=== PATIENT | female | born 1960 | race Caucasian/White ===

== ENCOUNTER 2018-10-07 19:17 | Inpatient (IN) ==
[2018-10-07] MEDS ORDERED: ASPIRIN PR ONE (19:25)
[2018-10-07] MEDS ORDERED: ASPIRIN PO ONE ×2 (19:25→20:44)
--- NOTE | 2018-10-07 19:56 | PROVIDER DOCUMENTATION ---
HPI-Cardiac General - General Chief Complaint: Palpitations Stated Complaint: HEART MONITORING [facility] TOLD HER TO COME IN Time Seen by Provider: 10/07/18 19:34 Source: patient Allergies/Adverse Reactions: Patient Allergies Allergy/AdvReac Type Severity Reaction Status Date / Time No Known Allergies Allergy Verified 07/22/17 09:20 Home Medications: Home Medication List Medication Instructions Recorded Confirmed Last Taken Type Citalopram [Celexa] 20 mg PO DAILY 08/12/16 09/07/18 09/07/18 History Clonazepam 1 mg PO BID 08/12/16 09/07/18 09/07/18 14:00 History Meloxicam 7.5 mg PO BID 08/12/16 09/07/18 09/07/18 12:00 History Losartan Potassium [Cozaar] 100 mg PO DAILY #30 tab 08/19/17 09/07/18 09/07/18 12:00 Rx Losartan [Cozaar] 100 mg PO DAILY tablet 09/09/18 Unknown Rx Metoprolol [Lopressor] 25 mg PO BID 30 Days #60 tab 09/09/18 Unknown Rx - History of Present Illness-Cardiac Nature of Presenting Problem: Pt is 58 yo female, with pmh of SVT approx 1 month ago, HR 250, while in ER was given adenosine, then cardioverted. 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 States the episode lasted approx 30 min and on arrival to ED, EKG with sinus tach at 102. Denies cp. Denies sob. Onset/Duration: abrupt, just prior to arrival Timing: gone now Context/Activities at Onset: reports: light activity History of arrythmia: reports: SVT Prior Chest Pain/Cardiac Workup: reports: other (similar symptoms) Similar Symptoms Previously?: Yes Recently Seen Here or By Another Healthcare Provider: Yes Review of Systems - Adult - REVIEW OF SYSTEMS - ADULT Constitutional: denies: fever Cardiovascular: reports: palpitations. denies: chest pain Respiratory: denies: shortness of breath Gastrointestinal: denies: vomiting Neurological: reports: dizziness/vertigo Psychiatric: reports: panic attacks All Other Systems: Reviewed and Negative Past History - Adult - PAST MEDICAL HISTORY-ADULT Review of Records: reports: Old Records Reviewed, Nursing Assessment Review, Medications Reviewed, Social history reviewed & non-contributory. Psychiatric: reports: anxiety - IMMUNIZATION STATUS Childhood Immunizations: See Nurse Assessment Flu Vaccine: See Nurse Assessment Physical Exam-General - PHYSICAL EXAM-ADULT Initial Vital Signs Reviewed: Yes (tachycardic; mildly elevated blood pressure) - CONSTITUTIONAL General Appearance: alert, mild distress, anxious - EYES Eyes: PERRL/EOMI, pink conjunctivae - HEAD, EARS, NOSE, MOUTH & THROAT HENMT: normocephalic/atraumatic, moist mucous membranes - NECK Neck: supple - RESPIRATORY Respiratory: lungs clear, normal breath sounds, no pleuratic chest pain, no respiratory distress, no accessory muscle use - CARDIOVASCULAR Cardiovascular: no edema, no gallop, no JVD, no murmur, tachycardia, 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) - SKIN Integumentary: normal color, normal turgor, warm/dry - NEUROLOGIC Neurologic: grossly normal - PSYCHIATRIC Psych/Mental Status: normal thought content, normal thought process, oriented x 3, anxious Progress - PLAN OF CARE/RESULTS Progress/Plan/Lab Results: Vital Signs - 8 hr 10/07/18 19:28 Temperature 98.2 F Pulse Rate 107 H Respiratory Rate 22 Blood Pressure 142/91 O2 Sat by Pulse Oximetry 95 Laboratory Results - last 24 hr 10/07/18 10/07/18 10/07/18 19:30 19:30 19:30 WBC 17.15 H RBC 4.46 Hgb 12.6 Hct 39.0 MCV 87.4 MCH 28.3 MCHC 32.3 L RDW Std Deviation 14.2 Plt Count 309 MPV 10.6 H Immature Gran % (Auto) 0.3 Neut % (Auto) 77.2 H Lymph % (Auto) 13.5 L [place] % (Auto) 6.9 Eos % (Auto) 2.0 Baso % (Auto) 0.1 Immature Gran # (Auto) 0.05 H Neut # (Auto) 13.24 H Lymph # (Auto) 2.31 [place] # (Auto) 1.19 H Eos # (Auto) 0.34 Baso # (Auto) 0.02 PT 13.0 INR 0.91 PTT (Actin FS) 28.5 Troponin T < 0.010 Orders Category Date Time Status Cardiac Monitoring DIRECTED Care 10/07/18 19:26 Active Oxygen Therapy- ED Nursing DIRECTED Care 10/07/18 19:26 Active Saline Loc NOW Care 10/07/18 19:26 Active CHEST-2 VIEWS [RAD] Stat Exams 10/07/18 19:26 Completed CBC WITH ELECTRONIC DIFF [HEME] Stat Lab 10/07/18 19:30 Completed CK PROFILE [SP CHEM] Stat Lab 10/07/18 19:30 Received COMPREHENSIVE METABOLIC PANEL [CHEM] Stat Lab 10/07/18 19:30 Received PRO B-NATRIURETIC PEPTIDE Stat Lab 10/07/18 19:30 Received PROTIME WITH INR [COAG] Stat Lab 10/07/18 19:30 Completed PTT [COAG] Stat Lab 10/07/18 19:30 Completed TROPONIN T Stat Lab 10/07/18 19:30 Completed Aspirin Med 10/07/18 19:25 Discontinued 300 mg MO NOW ONE Aspirin Med 10/07/18 19:25 Discontinued 325 mg PO NOW ONE Aspirin Med 10/07/18 20:44 Discontinued 325 mg PO NOW ONE CP/SOB/Palp >45 yrs of Age Stat Oth 10/07/18 19:25 Ordered EKG [EKG] Stat Ther 10/07/18 19:26 Ordered Result Diagrams: 10/07/18 19:30 - REASSESSMENT Reassessment #1 Time Reassessed: 20:49 (d/w Dr. Chacon, admit to hospitalist. ) Reassessment #2 Time Reassessed: 20:56 (d/w Dr. Kaplan for admission. ) Departure - Departure Date of Disposition Decision: 10/07/18 Time of Disposition Decision: 20:50 DIAGNOSIS: SVT (supraventricular tachycardia) Disposition: ADMITTED INPATIENT 09 Certified Medical Emergency: Emergent Condition: Stable Referrals and Follow-Ups: Omayra Bennett MD [Primary Care Provider] - - Critical Care Note This patient required my direct & personal management of CC.: No Attestation - Physician/ LISSA Attestation Patient care was provided by Advanced Practice Provider:: Yes Advanced Practice Provider documentation review:: The Mid-level provider documentation, treatment plan and medical decision making was reviewed by the physician who agrees with all treatment and medical decision making by the P. The physician spent face to face time with patient:: No Advanced Practice Provider documentation review:: Supervising physician onsite and consulted in the evaluation and care of this patient. The physician did not have a face to face encounter with the patient.
[2018-10-07 20:23] LABS: BASO# 0.02 X1000 (0.0-0.2); BASO% 0.1 % (0.0-0.8); EOS# 0.34 X1000 (0.0-0.7); HEMOGLOBIN 12.6 g/dL (12.0-16.0); IMM GRAN# 0.05 X1000 (0.0-0.04); IMM GRAN% 0.3 % (0.0-0.5); LYMPH# 2.31 X1000 (1.2-3.4); LYMPH% 13.5 % (20.5-51.1); MCH 28.3 PG (27-31); MCHC 32.3 g/dL (33-37); MCV 87.4 FL (81-99); MONO# 1.19 X1000 (0.11-0.59); MONO% 6.9 % (1.7-9.3); MPV 10.6 FL (7.4-10.4); NEUT# 13.24 X1000 (1.4-6.5); NEUT% 77.2 % (42.2-75.2); PLT 309 X1000 (130-400); RBC 4.46 XMIL (4.2-5.4); RDW 14.2 % (11.5-14.5); WBC 17.15 X1000 (4.8-10.8)
[2018-10-07 20:31] LABS: INR 0.91
[2018-10-07 20:32] LABS: PTT 28.5 Seconds (22.3-41.8)
--- NOTE | 2018-10-07 20:54 | Diag Imaging Result Doc PS360 ---
CHEST-2 VIEWS - 10/07/2018 INDICATION: palpatations. COMPARISON: 09/07/2018 FINDINGS: The lungs are normally expanded and clear. Heart size and mediastinal contours are normal. No pneumothorax or pleural effusion. IMPRESSION: Negative exam. Electronically signed by Shelton Whitlock 10/07/2018 8:52 PM
[2018-10-07 20:57] LABS: AGAP 17; ALB/GLOB RATIO 1.4; ALBUMIN 4.3 g/dL (3.5-5.0); ALKALINE PHOSPHATASE 103 U/L (32-104); BUN 15 mg/dL (8-22); CALCIUM 8.8 mg/dL (8.8-10.2); CHLORIDE 105 mmol/L (98-107); CK PROFILE 60 U/L (24-173); COSMO 285; CREATININE 0.9 mg/dL (0.5-0.9); ESTIMATED GFR > 60; GLUCOSE 153 mg/dL (70-104); GOT 11 U/L (10-30); GPT 12 U/L (10-36); POTASSIUM 3.9 mmol/L (3.5-5.1); SODIUM 141 mmol/L (136-145); TCO2 19 mmol/L (25-35); TOTAL BILIRUBIN 0.55 mg/dL (0.20-1.00); TOTAL PROTEIN 7.3 g/dL (6.3-8.3)
[2018-10-07] MEDS: NS 1,000 ML IV SCH (23:25)
--- NOTE | 2018-10-08 02:19 | HISTORY AND PHYSICAL ---
PRIMARY CARE PHYSICIAN: Dr. Omayra Bennett. CHIEF COMPLAINT: Heart racing, dizzy, not feeling well. HISTORY OF PRESENTING ILLNESS: A 58-year-old female with a history of SVT, hypertension, anxiety disorder, and arthritis who, apparently, had an episode about a month ago when she was in SVT and had to be cardioverted. She, apparently, had seen photocopy operator at that time, was put on a loop recorder and sent home. Over the past day or so, she states that she has developed the symptoms again with the heart racing, dizziness, and subsequently she got a call from the monitoring service telling her to come to the emergency department. In the ED, she was evaluated. She was now in a sinus tach. Due to patient being symptomatic, it was thought that she would need admission for further management. At the time of my examination, she denied any headache, fever, chills, hemoptysis, melena, weight changes, but complained of palpitations, some mild chest discomfort, and shortness of breath. PAST MEDICAL HISTORY: Includes hypertension, anxiety, SVT, arthritis. PAST SURGICAL HISTORY: Bilateral knee replacement. ALLERGIES: No known drug allergies. CURRENT MEDICATIONS: Include Mobic 7.5 mg p.o. b.i.d., Klonopin 1 mg p.o. daily, losartan 25 mg, 1 daily, Celexa 20 mg p.o. daily, metoprolol 25 mg p.o. b.i.d., levothyroxine 25 mcg p.o. daily, amitriptyline 10 mg p.o. at bedtime, Lasix 20 mg p.o. daily. SOCIAL HISTORY: She is a former smoker. History of alcohol use in the past. Denies any illicit drug use. FAMILY HISTORY: No history of coronary disease. REVIEW OF SYSTEMS: Fourteen-point review of system is as in HPI. Other systems negative. PHYSICAL EXAMINATION: GENERAL: Cooperative, friendly female, she is resting comfortably now. VITAL SIGNS: Temperature 98.2 degrees, pulse 107, respirations 22, blood pressure 142/91. HEENT: Atraumatic, normocephalic. Extraocular movements intact. PERRLA. NECK: No masses. CHEST: Clear to auscultation. CARDIOVASCULAR: Tachycardic. ABDOMEN: Soft, positive bowel sounds. EXTREMITIES: No edema. NEUROLOGIC: She is awake, alert, oriented x3. GENITOURINARY: No bladder distention. SKIN: Warm. LABORATORIES AND STUDIES: WBC 17.15, hemoglobin 12.6, hematocrit 39.0, platelets 309,000. Sodium 141, potassium 3.9, chloride 105, CO2 is 19, BUN is 15, creatinine 0.9. Glucose is 150. Troponin 0.010. ASSESSMENT: This is a 58-year-old female with a history of hypertension, supraventricular tachycardia, anxiety, and arthritis, who had presented to the emergency department with a 1-day history of having palpitations, dizziness. Apparently, the monitoring service had told patient to come to the emergency department. The patient was evaluated here, she was found to be in sinus tachycardia. Her case was discussed with Cardiology, who recommended the patient be admitted for further management. 1. Suspected supraventricular tachycardia, now in sinus tachycardia. 2. Hypertension. 3. Anxiety disorder. 4. Hypothyroidism. PLAN: 1. We will admit patient to [facility]. 2. Continue to monitor patient on telemetry. 3. We will consult Cardiology. 4. We will monitor blood pressure closely. 5. We will check thyroid profile. 6. We will put patient on DVT prophylaxis with SCDs. 7. We will continue to follow, reassess, and make further recommendations based on patient's clinical course. cc: Duc Kaplan MD
[2018-10-08 05:58] LABS: BASO# 0.02 X1000 (0.0-0.2); BASO% 0.2 % (0.0-0.8); EOS# 0.35 X1000 (0.0-0.7); EOS% 2.8 % (0.0-10.0); HEMATOCRIT 37.4 % (37.0-47.0); HEMOGLOBIN 11.9 g/dL (12.0-16.0); IMM GRAN# 0.05 X1000 (0.0-0.04); IMM GRAN% 0.4 % (0.0-0.5); LYMPH# 1.89 X1000 (1.2-3.4); LYMPH% 15.3 % (20.5-51.1); MCH 28.3 PG (27-31); MCHC 31.8 g/dL (33-37); MCV 88.8 FL (81-99); MONO# 0.86 X1000 (0.11-0.59); MONO% 6.9 % (1.7-9.3); MPV 10.3 FL (7.4-10.4); NEUT# 9.22 X1000 (1.4-6.5); NEUT% 74.4 % (42.2-75.2); PLT 267 X1000 (130-400); RBC 4.21 XMIL (4.2-5.4); RDW 14.3 % (11.5-14.5); WBC 12.39 X1000 (4.8-10.8)
[2018-10-08 06:23] LABS: AGAP 12; BUN 13 mg/dL (8-22); CALCIUM 8.7 mg/dL (8.8-10.2); CHLORIDE 107 mmol/L (98-107); COSMO 283; CREATININE 0.8 mg/dL (0.5-0.9); ESTIMATED GFR > 60; GLUCOSE 121 mg/dL (70-104); POTASSIUM 3.7 mmol/L (3.5-5.1); SODIUM 141 mmol/L (136-145); TCO2 22 mmol/L (25-35)
--- NOTE | 2018-10-08 07:19 | EKG Report ---
Test Performed on : 10/07/2018 7:24:04 PM Test Reason : Palpatations. Blood Pressure : / mmHG Vent. Rate : 102 BPM Atrial Rate : 102 BPM P-R Int : 118 ms QRS Dur : 068 ms QT Int : 340 ms P-R-T Axes : 079 052 034 degrees QTc Int : 443 ms Sinus tachycardia. Nonspecific ST abnormality Abnormal ECG When compared with ECG of 08-SEP-2018 09:34, ST elevation now present in Inferior leads ST now depressed in Anterior leads Unconfirmed Result
[2018-10-08] MEDS: NS 1,000 ML IV SCH (08:34)
[2018-10-08] MEDS ORDERED: CELEXA PO SCH (09:00)
[2018-10-08] MEDS ORDERED: SYNTHROID PO SCH (09:00)
[2018-10-08] MEDS ORDERED: LOPRESSOR PO SCH ×2 (09:00→21:00)
[2018-10-08] MEDS ORDERED: VITAMIN B-12 PO SCH ×2 (09:00→21:00)
[2018-10-08] MEDS ORDERED: LASIX PO SCH (09:00)
--- NOTE | 2018-10-08 09:20 | PROGRESS NOTE ---
DATE: 10/08/2018 SUBJECTIVE: The patient reports feeling fine. He has no more episodes of palpitations. OBJECTIVE: Vital Signs: Temperature 97.8 degrees, heart rate 82, respiratory rate 21, blood pressure 135/56, O2 saturation 99% on room air. General examination: This is a 58-year-old obese female, lying in bed in no acute distress. HEENT: Head is normocephalic, atraumatic. Neck: No JVD noted. No carotid bruits. No lymphadenopathy. No thyromegaly. Cardiovascular exam: S1, S2 heard. Tachycardic. No murmurs, gallops, or rubs. Regular rate and rhythm. Respiratory exam: Clear bilaterally to auscultation. No work of breathing or using accessory muscles. Abdomen: Soft. Nontender to palpation. Bowel sounds present. No organomegaly. Extremities: No clubbing, cyanosis, or edema. Peripheral pulses present in both legs. Neurological exam: Patient is alert and oriented x3. Moves 4 extremities. LABORATORY DATA: White cell count 12.39, hemoglobin 11.9, hematocrit 37.4, platelets 267 with a normal BMP. Blood sugars are 121. ASSESSMENT: 1. Supraventricular tachycardia. That is what the monitor captured. The patient was called and recommended to come to the emergency department. Patient upon my examination is in sinus tachycardia. Of course, Cardiology has been consulted to see what kind of heart rhythm she had and we will go from there. We will follow recommendations. 2. Hypertension. Blood pressure is under control. We will continue with the same management. 3. Anxiety disorder. We will continue with home medications. 4. Hypothyroidism. We have checked thyroid stimulating hormone and is within normal limits. So, we will continue with home doses of levothyroxine. 5. Disposition: Depending upon the recommendations from Cardiology. cc: Luiz Stevenson MD
[2018-10-08] MEDS: KLONOPIN PO SCH ×2 (09:45→21:16)
--- NOTE | 2018-10-08 11:20 | CARDIOLOGY CONSULTATION ---
DATE: 10/08/2018 REASON FOR CONSULTATION: Cardiology was consulted for a broad complex tachycardia. HISTORY OF PRESENT ILLNESS: Ms. Garrido is a 58-year-old, lady who was admitted on 09/08/2018. At that time, she had significant palpitations and EMT was called. They noted heart rate of 200 to 250 beats per minute and supraventricular tachycardia. They performed a cardioversion to sinus rhythm. She was subsequently admitted and discharged home. She is wearing a monitor. She again had an episode of symptoms of palpitations, dizziness, and an almost near syncopal episode. Came to the emergency room. Her monitoring revealed a broad complex tachycardia, rate of 200 to 220 beats per minute. Currently, she is in sinus rhythm. In the interim since her last admission, she has had a few other episodes of palpitations while wearing the monitor as well. She denies chest pain. There is no previous history of coronary artery disease. PAST MEDICAL HISTORY: Hypertension, supraventricular tachycardia, broad complex tachycardia, bilateral knee replacement, arthritis, anxiety. HOME MEDICATIONS: Include Mobic 7.5 b.i.d., Klonopin 1, losartan 25, Celexa 25, metoprolol 25 b.i.d., levothyroxine 25 mg, amitriptyline 10, Lasix 20. SOCIAL HISTORY: She is a former smoker. FAMILY HISTORY: As far as family history is concerned, her daughter had SVT and has had ablation. She lives in [place]. REVIEW OF SYSTEMS: GI System: There is no history of nausea, vomiting, or diarrhea. There is no history of hematemesis or melena. Central Nervous System: No focal weakness to suggest a CVA or TIA. Genitourinary System: There is no dysuria or hematuria. Respiratory System: There is no history of cough, expectoration, or hemoptysis. There is no history of fevers or chills. PHYSICAL EXAMINATION: Vital Signs: Blood pressure was 150/74. Cardiovascular System: Normal jugular venous pressure. There is no thyromegaly. No carotid bruit. First and second heart sounds were heard. There was no S3 gallop. Respiratory System: Normal air entry. There are no crepitations or rhonchi. Abdomen: Soft, obese, nontender. There was no guarding or rigidity. Bowel sounds were heard. LABORATORY DATA: WBCs 7.15, hemoglobin 12.6, hematocrit 39, platelet count of 309,000. Sodium 141, potassium 3.9, BUN 15, creatinine 0.6. Cardiac enzymes negative. Electrocardiogram revealed normal sinus rhythm, normal EKG. Echocardiogram done recently revealed an EF of 65%. No structural abnormality. There was mild left atrial enlargement. ASSESSMENT AND PLAN: Ms. Miriam Garrido is a 58-year-old, lady with a history of hypertension, anxiety, and palpitations. Was admitted on 09/07/2018 with supraventricular tachycardia which she was cardioverted to sinus rhythm by emergency medical staff credentialing coordinator at that time. No records of that episode available. She has had episodes of palpitations. She is wearing a heart monitor. Comes in again with heart racing, dizziness, and palpitations. Monitor which she is wearing revealed a broad complex tachycardia with a heart rate of up to 200 to 220 beats per minute. Currently, she is in sinus rhythm. There is no electrolyte imbalance. Chest x- ray was unremarkable. PLAN: 1. I had a detailed discussion with the patient. We will set her up for ischemic workup. We will plan for a Cardiolite stress test. 2. Continue with the beta blockers at 50 mg twice daily. We will discontinue the losartan. 3. We will have her evaluated for consideration for EP studies at [facility]. cc: Phillip Gayle MD
[2018-10-08] MEDS ORDERED: LEXISCAN ONE (12:58)
[2018-10-08] MEDS ORDERED: TYLENOL PO PRN (16:34)
[2018-10-08 20:16] VITALS: BP 124/77
[2018-10-08] MEDS ORDERED: ELAVIL PO SCH (21:00)
[2018-10-09] MEDS ORDERED: LASIX PO SCH (09:00)
--- NOTE | 2018-10-09 12:59 | Diag Imaging Result Document ---
PROCEDURE NAME: MYOCARDIAL PERF SCAN, STR/REST - 10/08/2018 PROCEDURE: Lexiscan Cardiolite stress test. DESCRIPTION OF PROCEDURE IN DETAIL: Lexiscan was infused per standard protocol. There was no chest pain. Stress electrocardiogram was negative for ischemia. Following Lexiscan infusion. 14.4 mCi of Cardiolite was injected for the rest phase; 43 mCi of Cardiolite was injected for the stress phase. Gated SPECT images were obtained in standard views. Images revealed normal left ventricular cavity size. There is better tracer uptake on the stress compared to rest. There is significant breast, as well as diaphragmatic attenuation. There is low-grade fixed defect in the inferior wall and in the inferoapical wall with normal wall motion. This is likely to represent attenuation defect. Low probability of scar. There is no evidence of ischemia. Left ventricular ejection fraction by gated SPECT was 85%. CONCLUSIONS: 1. No chest pain. 2. Negative Lexiscan stress electrocardiogram. 3. Myocardial perfusion images revealed no evidence of ischemia. 4. There is low-grade fixed defect in the inferior inferoapical wall suggestive of attenuation defect. There was significant breast as well as diaphragmatic attenuation. Low probability of scar. 5. Left ventricular ejection fraction 85%. cc: MD Lupe Anguiano PA
--- NOTE | 2018-10-09 17:49 | DISCHARGE SUMMARY ---
ADMISSION DATE: 10/07/2018 DISCHARGE DATE: 10/08/2018 DISCHARGE DIAGNOSES: 1. Supraventricular tachycardia, controlled. 2. Hypertension. 3. Anxiety disorder. CONSULTATIONS: Phillip Gayle MD from cardiology. PROCEDURES: 1. X-ray done on admission showed negative exam. 2. Myocardial perfusion scan showed no chest pain. Negative Lexiscan and stress electrocardiogram. No evidence of ischemia noted. Left ventricular ejection fraction of 85%. HOSPITAL COURSE: This is a [id number]- female with a history of SVT, hypertension, and anxiety disorder who has been seen by cardiology approximately a month. She was put on a loop recorder and was sent home. Staff from the company who takes care of this monitor told her that she needed to go to the hospital because of abnormal heart rhythm. The patient was admitted for that reason. She was evaluated by residential finish carpenter. They first tried to rule out an ischemic reason for this abnormal heart rhythm. When I saw the patient, she was stable with no apparent issues noted. After Lexiscan exam, Dr. Gayle decided to transfer the patient to [facility] for electrophysiology status. Then she was transported by ambulance last night to [facility]. cc: Luiz Stevenson MD [facility]
== END 2018-10-08 21:45 | disposition short-term general hospital (02) | DRG 310 ==
LOC: 3N 19:17 → EDIPHOLD 19:17 → ED 19:17 → SUATTDRO 21:11 → OBSVTOIN 21:11 → 3S 22:32
PROVIDERS: ATTEND Internal Medicine
CPT/HCPCS: 71020; 71046; 78452; 80048; 80053; 82550; 83880; 84439; 84443; 84484; 85025; 85610; 85730; 93005; 93017; 99285; A9270; A9500; J2785; J7030